=== PATIENT | female | born 2000 | race American Indian/Alaskan Native ===

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

== ENCOUNTER 2024-05-17 02:44 | Emergency (ER) | payer BC | END 2024-05-17 05:44 | disposition home or self-care (01) | LOC: JD.ED 02:44 | DX: S62.306A Unspecified fracture of fifth metacarpal bone, right hand, initial encounter for closed fracture (principal); Z79.899 Other long term (current) drug therapy; W51.XXXA Accidental striking against or bumped into by another person, initial encounter | CPT/HCPCS: 29125; 73130-26-RT; 73130-RT; 99283; 99284-25 ==

== ENCOUNTER 2025-01-07 23:58 | Emergency (ER) | payer BC ==
[2025-01-08] MEDS: diphenhydrAMINE 50 MG/ML SDV IVPUSH ONE (00:27)
[2025-01-08] MEDS: methylPREDNISolone Sodium Succinate 125 MG/2 ML SDV IVPUSH ONE (00:27)
== END 2025-01-08 01:59 | disposition home or self-care (01) ==
LOC: JD.ED 23:58
DX: L50.0 Allergic urticaria (principal); Z86.16 Personal history of COVID-19; Z79.899 Other long term (current) drug therapy
CPT/HCPCS: 96374; 96375; 99283; J1200; J2919